=== PATIENT | male | born 1985 | race Caucasian/White ===

== ENCOUNTER 2016-08-19 13:07 | Emergency (ER) | payer OTHER ==
[2016-08-19] MEDS ORDERED: PROPARACAINE 0.5% 15 ML OPHT DROP ONE (13:11)
[2016-08-19] MEDS ORDERED: FLUORESCEIN SODIUM 1 MG STRIP OP ONE (13:11)
[2016-08-19] MEDS ORDERED: OFLOXACIN 0.3% SOLN PREPACK OPHT.BTL TAKEHOME ONE (13:25)
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
[2016-08-19 14:01] VITALS: BP 133/78; PULSE 70; RESP 14; TEMP 97.9; O2SAT 94
== END 2016-08-19 14:00 | disposition home or self-care (01) ==
LOC: EDUNIT#
DX: T26.11XA Burn of cornea and conjunctival sac, right eye, initial encounter (principal); X01.0XXA Exposure to flames in uncontrolled fire, not in building or structure, initial encounter; Y92.828 Other wilderness area as the place of occurrence of the external cause; Y99.0 Civilian activity done for income or pay; Y93.89 Activity, other specified